=== PATIENT | female | born 1965 | race Caucasian/White ===

== ENCOUNTER 2023-12-14 11:23 | Emergency (ER) | payer SELFPAY ==
[2023-12-14] MEDS ORDERED: Ketorolac Tromethamine 30 MG (1 mL) VIAL ONE (13:01)
[2023-12-14] MEDS ORDERED: Diazepam 5 MG TAB ONE (13:01)
== END 2023-12-14 13:59 | disposition home or self-care (01) ==
LOC: CSHERS 11:23
DX: M54.50 Low back pain, unspecified (principal); F17.210 Nicotine dependence, cigarettes, uncomplicated; I10 Essential (primary) hypertension
CPT/HCPCS: 72100; 96372; 99283; J1885